=== PATIENT | female | born 1970 ===

== ENCOUNTER 2017-02-10 10:43 | Emergency (ER) | payer MEDICAID ==
[2017-02-10 10:58] VITALS: TEMP 97.8
[2017-02-10 10:59] VITALS: O2SAT 98
--- NOTE | 2017-02-10 11:17 | ED PDOC ---
Lower Extremity Pain/Injury Time Seen by Provider: 02/10/17 11:05 Chief Complaint (Nursing): Lower Extremity Problem/Injury Chief Complaint (Provider): left foot pain History Per: Patient History/Exam Limitations: no limitations Onset/Duration Of Symptoms: Hrs (<1) Current Symptoms Are (Timing): Still Present Severity: Moderate Additional Complaint(s): 46yo female states slipped on ice falling injurying left foot. Denies head, neck , back, hip or upper extremity trauma. Denies chest pain, SOB, abd pain or numbness/weakness. Pain mostly upper outer left foot. - Ankle/Foot Description Of Injury: Fell, Twisted Feet: 1 - pain Past Medical History Reviewed: Historical Data, Nursing Documentation, Vital Signs Vital Signs: Last Vital Signs Temp 97.8 F 02/10/17 10:57 Pulse 82 02/10/17 10:57 Resp 18 02/10/17 10:57 BP 120/79 02/10/17 10:57 Pulse Ox 98 02/10/17 10:57 - Medical History PMH: No Chronic Diseases - Family History Family History: States: Unknown Family Hx - Living Arrangements Living Arrangements: With Family - Social History Current smoker - smoking cessation education provided: No - Home Medications Home Medications: Ambulatory Orders Medication Instructions Recorded Naproxen [Naprosyn] 500 mg PO BID PRN #14 tablet 02/10/17 oxyCODONE/Acetaminophen [Percocet 1 ea PO Q4 PRN #8 tab 02/10/17 5/325 mg Tab] - Allergies Allergies/Adverse Reactions: Allergies Allergy/AdvReac Type Severity Reaction Status Date / Time No Known Allergies Allergy Verified 02/10/17 10:57 Review of Systems ROS Statement: Except As Marked, All Systems Reviewed And Found Negative Cardiovascular: Negative for: Chest Pain, Palpitations Respiratory: Negative for: Cough, Shortness of Breath Gastrointestinal: Negative for: Nausea, Vomiting Musculoskeletal: Positive for: Foot Pain. Negative for: Neck Pain, Shoulder Pain, Leg Pain Skin: Negative for: Rash, Lesions, Jaundice Neurological: Negative for: Weakness, Numbness, Headache, Dizziness Physical Exam - Reviewed Nursing Documentation Reviewed: Yes Vital Signs Reviewed: Yes - Physical Exam Appears: Positive for: Well, Non-toxic Head Exam: Positive for: ATRAUMATIC Skin: Positive for: Normal Color, Warm Neck: Positive for: Painless ROM Respiratory: Negative for: Respiratory Distress Extremity: Positive for: Swelling, Other (L foot + tender dorsum and laterally) - ECG O2 Sat by Pulse Oximetry: 98 Medical Decision Making Medical Decision Making: foot trauma workup initiated. Toradol 30mg IM ordered for pain. XR foot: Accession No. : [id number] Patient Name / ID : MARS TYLER / [id number] Exam Date : 02/10/2017 11:25:42 ( Approved ) Study Comment : Sex / Age : F / 46Y Creator : Kelsy Bahena MD Dictator : Kelsy Bahena MD Special Services Supervisor : Behavioral Pediatrician : Kelsy Bahena MD Approver2 : Report Date : 02/10/2017 11:40:48 My Comment : PROCEDURE: Left Foot Radiographs. HISTORY: fall trauma foot COMPARISON: None available. FINDINGS: BONES: Subtle horizontal linear lucency involving the medial aspect of the proximal 4th metacarpal seen on a single view appears to reflect artifact rather than nondisplaced fracture; correlate with physical exam to exclude point tenderness. No acute displaced fracture. JOINTS: No dislocation. SOFT TISSUES: Unremarkable. No evidence of radiopaque foreign body. OTHER FINDINGS: None. IMPRESSION: Subtle horizontal linear lucency involving the medial aspect of the proximal 4th metacarpal seen on a single view appears to reflect artifact rather than nondisplaced fracture; correlate with physical exam to exclude point tenderness. d/w podiatry commercial litigation paralegal, recommended CT foot given base MT, potential complicated fracture if present. Pt informed of results. CT report reviewed, +multiple prox MT fractures. Podiatry Dr Springer placed splint normal neurovasc status thereafter as confirmed by me. Followup podiatry clinic wednesday. Rx pain medicines. NWB crutches provided. Disposition - Clinical Impression Clinical Impression: Foot fracture - Patient ED Disposition Is Patient to be Admitted: No Counseled Patient/Family Regarding: Studies Performed, Diagnosis, Need For Followup, Rx Given - Disposition Referrals: Podiatry Clinic [Outside] Disposition: Routine/Home Disposition Time: 14:20 Condition: STABLE Additional Instructions: Nonweight bearing to left foot, use crutches. Take pain medication as directed. See podiatrists in clinic at [facility] next wednesday at 1230pm Prescriptions: Naproxen [Naprosyn] 500 mg PO BID PRN #14 tablet PRN Reason: Pain, Moderate (4-7) oxyCODONE/Acetaminophen [Percocet 5/325 mg Tab] 1 ea PO Q4 PRN #8 tab PRN Reason: Pain, Severe (8-10) Instructions: Foot Fracture in Adults (ED) Forms: [facility] ED School/Work Excuse - POA Present On Arrival: Falls Or Trauma
--- NOTE | 2017-02-10 11:40 | RAD ---
PROCEDURE: Left Ankle Radiographs. HISTORY: fall trauma foot ankle COMPARISON: None available FINDINGS: BONES: No acute displaced fracture. Tiny calcaneal enthesophyte. JOINTS: No dislocation. SOFT TISSUES: Unremarkable. No evidence of radiopaque foreign body. OTHER FINDINGS: None. IMPRESSION: No acute displaced fracture, dislocation, or significant joint effusion identified. If symptoms persist or if there is clinical concern, x-ray follow-up in 7-10 days should be considered.
--- NOTE | 2017-02-10 11:42 | RAD ---
PROCEDURE: Left Foot Radiographs. HISTORY: fall trauma foot COMPARISON: None available. FINDINGS: BONES: Subtle horizontal linear lucency involving the medial aspect of the proximal 4th metacarpal seen on a single view appears to reflect artifact rather than nondisplaced fracture; correlate with physical exam to exclude point tenderness. No acute displaced fracture. JOINTS: No dislocation. SOFT TISSUES: Unremarkable. No evidence of radiopaque foreign body. OTHER FINDINGS: None. IMPRESSION: Subtle horizontal linear lucency involving the medial aspect of the proximal 4th metacarpal seen on a single view appears to reflect artifact rather than nondisplaced fracture; correlate with physical exam to exclude point tenderness.
--- NOTE | 2017-02-10 12:59 | CP.PCM.CON ---
History of Present Illness - History of Present Illness History of Present Illness: PODIATRY CONSULT NOTE CC: left foot injury HPI: 46 year old female with left foot pain and swelling beginning 30 minutes ago secondary to a fall on ice today. Pt reports immediately after she was unable to bear weight on the left side. Pt can to the ED department immediately to seek medical treatment. Pt reports pain is a throbbing, localized 5/10 to the affected ankle. Pain is controlled at this time due to NSAID being administered upon arrival to ED. Pt denies recent n/v/f/c/cp/sob. Past Patient History - Past Social History Smoking Status: socially - CARDIAC Hx Cardiac Disorders: No - PULMONARY Hx Respiratory Disorders: No - NEUROLOGICAL Hx Neurological Disorder: No - HEENT Hx HEENT Problems: No - RENAL Hx Chronic Kidney Disease: No - ENDOCRINE/METABOLIC Hx Endocrine Disorders: No - HEMATOLOGICAL/ONCOLOGICAL Hx Blood Disorders: No - INTEGUMENTARY Hx Dermatological Problems: No - MUSCULOSKELETAL/RHEUMATOLOGICAL Hx Musculoskeletal Disorders: No - GASTROINTESTINAL Hx Gastrointestinal Disorders: No - GENITOURINARY/GYNECOLOGICAL Hx Genitourinary Disorders: No - PSYCHIATRIC Hx Psychophysiologic Disorder: No Hx Substance Use: No - SURGICAL HISTORY Hx Surgeries: Yes Hx Cholecystectomy: Yes Other/Comment: Abdominal explor lap - ANESTHESIA Hx Anesthesia: Yes Hx Anesthesia Reactions: No Meds Home Medications: Home Medication List Medication Instructions Recorded Confirmed Type Naproxen [Naprosyn] 500 mg PO BID PRN #14 tablet 02/10/17 Rx oxyCODONE/Acetaminophen [Percocet 1 ea PO Q4 PRN #8 tab 02/10/17 Rx 5/325 mg Tab] Allergies/Adverse Reactions: Allergies Allergy/AdvReac Type Severity Reaction Status Date / Time No Known Allergies Allergy Verified 02/10/17 10:57 Physical Exam - Constitutional Appears: Well, Non-toxic, No Acute Distress - Extremities Exam Additional comments: Left lower extremity focused. VASC: DP and PT pulses fully palpable, graded 2/4. Minor non-pitting edema noted extending along dorsal aspect of midfoot. No callor noted. Pedal hair growth noted at level of digits. DERM: No ecchymosis, vesicle, open wounds, or macerations noted. Nails are normotrophic and well cared for. NERUO: Protective sensation is grossly intact. MUSCK: No gross dislocation of deformity noted. Pain on palpation along midfoot , trigger point along 4th ray. Pain illicited on stressed forefoot inversion and eversion without limitation to range of motion. - Neurological Exam Neurological exam: Alert, Oriented x3 - Psychiatric Exam Psychiatric exam: Normal Affect, Normal Mood Results - Vital Signs Recent Vital Signs: Last Vital Signs Temp 97.8 F 02/10/17 10:57 Pulse 82 02/10/17 10:57 Resp 18 02/10/17 10:57 BP 120/79 02/10/17 10:57 Pulse Ox 98 02/10/17 11:59 Assessment & Plan - Assessment and Plan (Free Text) Assessment: 46 year old female with left 4th metatarsal base incomplete [id number] fracture. Plan: Patient evaluated and treated in emergency department. Chart, radiographs, and vitals were reviewed. Discussed with attending Dr. Rossi. -Applied [place] compression and posterior splint to left lower extremity. - Pt to perform RICE therapy at home - Pt to be non-weightbearing to left lower extremity w/ axillary crutches. Pt prescribed axillary crutches as proper height based supply is not in stock inhouse. - NSAIDs per ED physician. Patient to follow-up in podiatry clinic. - Date & Time Date: 02/10/17 Time: 13:30
[2017-02-10 14:50] VITALS: BP 122/82; PULSE 76; RESP 16
--- NOTE | 2017-02-10 15:02 | CT ---
PROCEDURE: CT left foot HISTORY: CT L foot; possible fx 4th MT seen on XR, trauma COMPARISON: None available TECHNIQUE: 2.5 mm contiguous axial sections were acquired through the left foot. Sagittal and coronal images were reformatted from the axial scan. FINDINGS: There is comminuted fracture at the base of the 2nd metatarsal. There is mild displacement of several small fragments. There is comminuted fracture at the base of the 3rd metatarsal. There is no 4th metatarsal fracture appreciated. There is nondisplaced fracture at the anterior lateral corner of the lateral cuneiform. There is suspected fracture of the middle cuneiform. This could be better delineated, if necessary, with magnetic resonance imaging. IMPRESSION: Comminuted fracture base of 2nd and 3rd metatarsal. No 4th metatarsal fracture. Fracture lateral cuneiform and suspected fracture middle cuneiform. Consider further evaluation with magnetic resonance imaging.
== END 2017-02-10 14:45 | disposition home or self-care (01) ==
LOC: H.ER 10:43
DX: S92.902A Unspecified fracture of left foot, initial encounter for closed fracture (principal); W19.XXXA Unspecified fall, initial encounter; Y92.410 Unspecified street and highway as the place of occurrence of the external cause

== ENCOUNTER 2017-03-25 15:48 | Emergency (ER) | payer MEDICAID ==
[2017-03-25 16:37] VITALS: RESP 16
--- NOTE | 2017-03-25 18:45 | ED PDOC ---
Lower Extremity Pain/Injury Time Seen by Provider: 03/25/17 18:07 Chief Complaint (Nursing): Lower Extremity Problem/Injury Chief Complaint (Provider): cast removal History Per: Patient History/Exam Limitations: no limitations Additional Complaint(s): Jose Rafael Bansal is a 46 year old female, with no previous medical history, who presents to the ED for the removal of her wet cast on her left foot. Patient reports cast was got wet while showering today and was initially going to be removed yesterday but she was unable to make her appointment. Patient denies any medical complaints. PMD: none provided Past Medical History Reviewed: Historical Data, Nursing Documentation, Vital Signs Vital Signs: Last Vital Signs Temp 98.6 F 03/25/17 16:33 Pulse 71 03/25/17 16:33 Resp 16 03/25/17 16:33 BP 104/50 L 03/25/17 16:33 Pulse Ox 100 03/25/17 16:33 - Medical History PMH: No Chronic Diseases Denies: Chronic Kidney Disease - Surgical History Surgical History: Cholecystectomy - Family History Family History: States: Unknown Family Hx - Home Medications Home Medications: Ambulatory Orders Medication Instructions Recorded Naproxen [Naprosyn] 500 mg PO BID PRN #14 tablet 02/10/17 oxyCODONE/Acetaminophen [Percocet 1 ea PO Q4 PRN #8 tab 02/10/17 5/325 mg Tab] - Allergies Allergies/Adverse Reactions: Allergies Allergy/AdvReac Type Severity Reaction Status Date / Time No Known Allergies Allergy Verified 03/25/17 16:33 Review of Systems ROS Statement: Except As Marked, All Systems Reviewed And Found Negative Musculoskeletal: Negative for: Leg Pain Neurological: Negative for: Weakness, Other (tingling ) Physical Exam - Reviewed Nursing Documentation Reviewed: Yes Vital Signs Reviewed: Yes - Physical Exam Appears: Positive for: Well, Non-toxic, No Acute Distress Extremity: Positive for: Normal ROM (patient is able to wiggle her toes ), Other (distally neurovascularly intact. fiberglass cast on the left foot. ) Neurologic/Psych: Positive for: Alert, Oriented - ECG O2 Sat by Pulse Oximetry: 100 (RA) Pulse Ox Interpretation: Normal Medical Decision Making Medical Decision Making: Initial Impression: Cast removal Podiatry has been consulted for cast removal. Scribe Attestation: Documented by Ericka Rogers, acting as a scribe for Jay Salinas MD. Provider Scribe Attestation: All medical record entries made by the Scribe were at my direction and personally dictated by me. I have reviewed the chart and agree that the record accurately reflects my personal performance of the history, physical exam, medical decision making, and the department course for this patient. I have also personally directed, reviewed, and agree with the discharge instructions and disposition. Disposition - Clinical Impression Clinical Impression: Cast removal - Patient ED Disposition Is Patient to be Admitted: Transfer of Care - Disposition Disposition Time: 19:00 Condition: STABLE Patient Signed Over To: Marybel Samuels (Pending cast removal by podiatry )
--- NOTE | 2017-03-25 19:11 | ED PDOC ---
- ECG O2 Sat by Pulse Oximetry: 100 (RA) Pulse Ox Interpretation: Normal Medical Decision Making Medical Decision Makin:00 Patient was endorsed to me by Jay Salinas MD pending repeat x-ray and disposition. xray repeated and as per podiatry pt is safe for dc home and follow up in two weeks with podiatry Scribe Attestation: Documented by Ericka Rogers, acting as a scribe for Abril No MD. Provider Scribe Attestation: All medical record entries made by the Scribe were at my direction and personally dictated by me. I have reviewed the chart and agree that the record accurately reflects my personal performance of the history, physical exam, medical decision making, and the department course for this patient. I have also personally directed, reviewed, and agree with the discharge instructions and disposition. Disposition Counseled Patient/Family Regarding: Studies Performed, Diagnosis, Need For Followup - Clinical Impression Clinical Impression: Cast removal - POA Present On Arrival: None - Disposition Referrals: [facility] [Outside] Podiatry Clinic [Outside] Disposition: Routine/Home Disposition Time: 20:00 Condition: IMPROVED Additional Instructions: follow up with podiatry as instructed return to the ED with any worsening or concerning symptoms Instructions: Foot Fracture in Adults (ED)
--- NOTE | 2017-03-25 19:33 | CP.PCM.PN ---
Subjective - Date & Time of Evaluation Date of Evaluation: 03/25/17 Time of Evaluation: 19:33 - Subjective Subjective: 46 year old female with no significant past medical history presenting to the ED for left lower extremity cast removal. The patient tripped and twisted her left foot on 02/10/17 and initially presented to the ED at that time. She was diagnosed with non displaced fractures to the bases of her left second third and possibly fourth metatarsals. She then followed up in the [facility] podiatry clinic. She has been NWB in a below knee cast since the injury. She states that she has no pain to the foot at this time. She states that she missed her most recent clinic appointment and that she got her cast wet in the shower and needs it to be removed today. She denies any other symptoms at this time. Objective - Vital Signs/Intake and Output Vital Signs (last 24 hours): Temp Pulse Resp BP Pulse Ox 98.6 F 71 16 104/50 L 100 03/25/17 16:33 03/25/17 16:33 03/25/17 16:33 03/25/17 16:33 03/25/17 19:13 - Constitutional Appears: Well, Non-toxic, No Acute Distress
--- NOTE | 2017-03-25 19:38 | CP.PCM.CON ---
History of Present Illness - History of Present Illness History of Present Illness: 46 year old female with no significant past medical history presenting to the ED for left lower extremity cast removal. The patient tripped and twisted her left foot on 02/10/17 and initially presented to the ED at that time. She was diagnosed with non displaced fractures to the bases of her left second third and possibly fourth metatarsals. She then followed up in the [facility] podiatry clinic. She has been NWB in a below knee cast since the injury. She states that she has no pain to the foot at this time. She states that she missed her most recent clinic appointment and that she got her cast wet in the shower and needs it to be removed today. She denies any other symptoms at this time. Past Patient History - Past Social History Smoking Status: Never Smoked - CARDIAC Hx Cardiac Disorders: No - PULMONARY Hx Respiratory Disorders: No - NEUROLOGICAL Hx Neurological Disorder: No - HEENT Hx HEENT Problems: No - RENAL Hx Chronic Kidney Disease: No - ENDOCRINE/METABOLIC Hx Endocrine Disorders: No - HEMATOLOGICAL/ONCOLOGICAL Hx Blood Disorders: No - INTEGUMENTARY Hx Dermatological Problems: No - MUSCULOSKELETAL/RHEUMATOLOGICAL Hx Musculoskeletal Disorders: No - GASTROINTESTINAL Hx Gastrointestinal Disorders: No - GENITOURINARY/GYNECOLOGICAL Hx Genitourinary Disorders: No - PSYCHIATRIC Hx Psychophysiologic Disorder: No Hx Substance Use: No - SURGICAL HISTORY Hx Cholecystectomy: Yes - ANESTHESIA Hx Anesthesia: Yes Hx Anesthesia Reactions: No Meds Allergies/Adverse Reactions: Allergies Allergy/AdvReac Type Severity Reaction Status Date / Time No Known Allergies Allergy Verified 03/25/17 16:33 Physical Exam - Constitutional Appears: Well, Non-toxic, No Acute Distress - Neurological Exam Neurological exam: Oriented x3 - Psychiatric Exam Psychiatric exam: Normal Affect, Normal Mood - Additional Findings Additional findings: Left lower extremity exam: DERMATOLOGIC: Skin is intact, no open lesions or rashes, no ecchymosis noted. There is maceration to the plantar aspect of the foot and distal toes due to cast padding being wet. VASCULAR: DP/PT pulses 2/4, VEGETABLE COOK<3 seconds, skin temperature is normal. There is no edema of the left foot present NEUROLOGIC: Gross sensation intact, motor function intact ORTHOPEDIC: Negative pain on palpation of the metatarsal bases, cuboid, cuneiforms, or navicular plantarly or dorsally. No pain with ROM of the foot, limited ankle ROM and mild stiffness Results - Vital Signs Recent Vital Signs: Last Vital Signs Temp 98.6 F 03/25/17 16:33 Pulse 71 03/25/17 16:33 Resp 16 03/25/17 16:33 BP 104/50 L 03/25/17 16:33 Pulse Ox 100 03/25/17 19:13 Assessment & Plan - Assessment and Plan (Free Text) Assessment: 46 year old female with non displaced fractures of the 2nd, 3rd and 4th metatarsal bases and possible cuneiform fracture Plan: Patient seen and evaluated, d/w attending Dr. Rossi Patients left foot x-rays reviewed, no displacement of fractures noted, no pain to the fracture site present Applied Posterior splint to left lower extremity Patient given Rx for below knee CAM walker, she will obtain CAM walker and then may remove splint and begin weight bearing in the boot only Patient to wear boot any time she is ambulating, she is not to ambulate without it Patient to follow up in podiatry clinic in 2 weeks on April 07, she should follow up sooner if she has any pain with transition to the cam boot
[2017-03-25 20:16] VITALS: BP 112/74; PULSE 73; TEMP 98.2
[2017-03-25 21:02] VITALS: O2SAT 100
--- NOTE | 2017-03-26 10:16 | RAD ---
PROCEDURE: Left Foot Radiographs. HISTORY: s/p splint, 4th metararsal fx COMPARISON: 02/24/2017 FINDINGS: BONES: Cast obscures bony details. The known nondisplaced fracture in the base of the 4th metatarsal is difficulty evaluate with a cast. JOINTS: Normal. SOFT TISSUES: Normal. OTHER FINDINGS: None. IMPRESSION: Crust obscures fine bony details. The fracture in the base of the 4th metatarsal is difficult to evaluate on these radiographs.
== END 2017-03-25 20:05 | disposition home or self-care (01) ==
LOC: H.ER 15:48
DX: Z46.89 Encounter for fitting and adjustment of other specified devices (principal)